=== PATIENT | male | born 1950 | race Caucasian/White ===

== ENCOUNTER 2024-07-07 06:57 | Day surgery (SDC) | payer OTHER ==
[2024-07-07] VITALS (7 sets, daily range): BP systolic 120–148; BP diastolic 73–87
[~2024-07-07 06:57] MED LIST: NS 250 ML IV SCH
[2024-07-07] MEDS ORDERED: IRON FOLATE-F1 EACH PO (13:47)
== END 2024-07-07 17:15 | disposition home or self-care (01) ==
LOC: ATC 06:57 → LAB FUT 07-06 14:20 → EDSTATUS 07-06 14:20 → ATC 07-06 14:20
DX: D64.9 Anemia, unspecified (principal); C90.00 Multiple myeloma not having achieved remission; I10 Essential (primary) hypertension; E78.5 Hyperlipidemia, unspecified; F43.10 Post-traumatic stress disorder, unspecified; Z87.891 Personal history of nicotine dependence; Z79.899 Other long term (current) drug therapy
CPT/HCPCS: 36415; 36430; 86850; 86900; 86901; 86923; J7050; P9016

== ENCOUNTER 2024-08-27 08:52 | Day surgery (SDC) | payer OTHER ==
[~2024-08-27] VITALS: Ht 175.3 cm; Wt 72.4 kg
[~2024-08-27 08:52] MED LIST changes: +FERSU300 PO; +IRON FOLATE-F1 EACH PO; -NS 250 ML IV SCH; +NS 500 ML IV ONE
[2024-08-27] MEDS ORDERED: NS 500 ML IV ONE (09:19)
--- NOTE | 2024-08-27 09:44 | NUR ---
08/27/24 0944 Alyssa Chavez TIME OUT PERFORMED AT BEDSIDE WITH DR RAMOS AT 0941 IMMEDIATELY PRIOR TO INJECTION INTO R HAND OF 9ML OF SOLUTION CONSISTING OF 9ML 1% LIDOCAINE WITH EPI [id number] AND 1ML 8.45 SODIUM BICARBONATE. PATIENT TOLERATED PROCEDURE WELL.
== END 2024-08-27 10:44 | disposition home or self-care (01) ==
LOC: ORSCSDS 08:52
PROVIDERS: Orthopaedic Surgery
PROC: 01N54ZZ Release Median Nerve, Percutaneous Endoscopic Approach (ICD-10-PCS; principal; 2024-08-27 10:30)
DX: G56.01 Carpal tunnel syndrome, right upper limb (principal); Z87.891 Personal history of nicotine dependence
CPT/HCPCS: J7040

== ENCOUNTER 2024-09-12 10:34 | Observation (INO) | payer OTHER ==
[~2024-09-12] VITALS: Ht 175.3 cm; Wt 67.8 kg
[2024-09-12] VITALS (12 sets, daily range): BP systolic 103–121; BP diastolic 67–79
[~2024-09-12 10:34] MED LIST changes: -NS 500 ML IV ONE
[2024-09-12 11:57] LABS: International Normalized Ratio 1.11; Prothrombin Time Results 11.8 Sec (9.7-11.5)
[2024-09-12 12:16] LABS: Magnesium, Blood 2.1 mg/dL (1.6-2.4)
[2024-09-12 12:36] LABS: Albumin, Blood 2.6 g/dL (3.4-5.0); Albumin/Globulin Ratio 0.3 (0.8-1.8); Bilirubin, Total 0.7 mg/dL (0.1-1.0); Calcium, Blood 9.5 mg/dL (8.5-10.1); Creatinine, Blood 1.61 mg/dL (0.60-1.20); Globulin, Blood 8.6 g/dL (2.2-4.0); Potassium, Blood 4.2 mmol/L (3.5-5.5); Total Protein, Blood 11.2 g/dL (6.4-8.2)
[2024-09-12 12:37] LABS: Bun/Creatinine Ratio 16.8 (12.0-20.0)
[2024-09-12 13:36] LABS: Calcium, Ionized (POC) 1.14 mmol/L (1.10-1.46); Chloride (POC) 102 mmol/L (98-108); Creatinine (POC) 1.8 mg/dL (0.8-1.3); Glucose (ISTAT POC) 88 mg/dL (70-99); Hemoglobin (POC) 6.1 g/dL (13.5-17.5); Potassium (POC) 4.2 mmol/L (3.5-5.5); Sodium (POC) 137 mmol/L (135-148); Total CO2 (POC) 23 mmol/L (21-32)
[2024-09-12 13:42] LABS: Mean Corpuscular HGB 32.9 pg (26.0-34.0); Mean Corpuscular HGB Conc 32.3 g/dL (31.5-36.5); Mean Corpuscular Volume 102 fL (80-100); NRBC ABSOLUTE 0.11 K/mm3 (0.00-0.02); RDW Coefficient Variation 19.9 % (11.7-14.2); RDW Standard Deviation 72.2 fL (35.1-46.3); Red Blood Cell Count 1.52 M/mm3 (4.30-5.90); White Blood Cell Count 5.58 K/mm3 (4.00-11.30)
[2024-09-12 13:45] LABS: Mean Platelet Volume 8.8 fL (9.1-12.4); Platelet Count 127 K/mm3 (150-400)
[2024-09-12 13:46] LABS: Hematocrit 15.5 % (37.0-53.0)
[2024-09-12 13:48] LABS: BAND PERCENT MAN 4 % (0-8); BASOPHILS PERCENT MAN 0 % (0-2); EOSINOPHILS PERCENT MAN 0 % (0-6); LYMPHOCYTES ABSOLUTE MAN 1.56 K/mm3 (0.84-5.20); LYMPHOCYTES PERCENT MAN 28 % (21-46); METAMYELOCYTE ABSOLUTE MAN 0.22 K/mm3 (0.00-0.00); METAMYELOCYTE PERCENT MAN 4 % (0-0); MONOCYTES ABSOLUTE MAN 0.11 K/mm3 (0.16-1.47); MONOCYTES PERCENT MAN 2 % (4-13); MYELOCYTE ABSOLUTE MAN 0.16 K/mm3 (0.00-0.00); MYELOCYTE PERCENT MAN 3 % (0-0); NEUTROPHILS ABSOLUTE MAN 3.51 K/mm3 (1.96-9.15); SEG NEUTROPHILS PERCENT MAN 59 % (41-73); TOTAL CELLS COUNTED 100
[2024-09-12] MEDS ORDERED: FLU VACC TS2024-25(6MOS UP)/PF 45 MCG/0.5 ML SYRINGE IM ONE (14:20)
[2024-09-12 15:12] LABS: IMMATURE RETIC FRACTION 35.4 % (2.3-16.0); RETIC HGB EQUIVALENT 31.1 pg (28.20-36.60); RETICULOCYTE ABSOLUTE 0.0619 M/mm3 (0.0200-0.1100); RETICULOCYTE COUNT PERCENT 4.1 % (0.50-2.50)
[2024-09-12 16:07] LABS: Percent Saturation 40.7 % (20.0-50.0)
--- NOTE | 2024-09-12 16:14 | NUR ---
1600- REPORT RECEIVED FROM SUPERCHARGER REPAIR SUPERVISORKINZA ROTHMAN.
[2024-09-12] MEDS ORDERED: Furosemide 10 MG / ML 2ML Vial IV SCH (17:00)
--- NOTE | 2024-09-12 18:38 | NUR ---
1615- PT TO MEDICAL FLOOR IN STABLE CONDITION.
--- NOTE | 2024-09-12 22:39 | NUR ---
ADMIT 2149 RECEIVED PT VIA WC WITH TECH, PT TRANSFERRED TO BED WITH STANDBY ASSIST, WEAK GAIT NOTED, ALERT AND ORIENTED X4, FOLLOWS COMMANDS, ABLE TO MAKE NEEDS KNOWN, 18G IN LEFT AC PATENT AND CLAMPED, 18 G PLACED TO RIGHT FOREARM,
--- NOTE | 2024-09-12 22:45 | NUR ---
SHIFT SUMMARY PT AWAITING TRANSFER TO PCU 14. HE WILL NEED LAB NOTIFIED ONCE HIS BLOOD TRANSFUSION IS COMPLETE IN ORDER TO DRAW LABS 2 HOURS AFTER TRANSFUSING. PT NEEDING PULSE OX ORDERED AND PLACED PER DAY SHIFT. DR. ALEXANDER PUT IN AN ORDER TO HAVE LASIX ADMINISTERED WITH PT S SECOND UNIT OF RBC'S. PT SITTING UP IN BED AWAITING TRANSFER. PT TRANSFERRED TO PCU 14 BY WHEELCHAIR. ALL PT BELONGINGS WITH PT.
[2024-09-13] VITALS (39 sets, daily range): BP systolic 108–166; BP diastolic 69–85
--- NOTE | 2024-09-13 06:22 | NUR ---
SHIFT SUMMARY VSS, AFEBRILE, ALERT AND ORIENTED X4, FOLLOWS COMMANDS, ABLE TO MAKE NEEDS KNOWN, X2 UNITS PRBC COMPLETED WITH 20 MG LASIX GIVEN WITH 2ND UNIT, 3RD UNIT PRBC INFUSING AT THIS TIME, NO REACTION NOTED, VOIDS WITHOUT DIFFICULTY, 24 HOUR URINE COLLECTION CONTINUED UNTIL 09/14 AT 0100, PT DENIES C/O PAIN OR SOB, CALL LIGHT IN REACH
--- NOTE | 2024-09-13 07:21 | NUR ---
ASSUMPTION NOTE: THIS RN TO ASSUME CARE. PATIENT IS SITING UP IN BED WATCHING TV. BLOOD PRODUCTS JUST COMPLETED AND CHARTED OUT BY PREVIOUS BUTTON SPINDLER RN. VITAL SIGNS TAKEN BY THIS RN AND PATIENT STABLE. DENIES CHEST PAIN/PRESSURE OR FEELING SOB. NO NAUSEA/VOMITING. LUNG SOUNDS CLEAR. PATIENT BROUGHT IN TOOTH BRUSH AND DENTURE CARE TABS BY PCT. HAS BED IN LOWEST POSITION AND CALL LIGHT WITHIN [facility].
--- NOTE | 2024-09-13 09:41 | NUR ---
MD AT BEDSIDE: MD CLEMENTE AND RESIDENTS WERE AT BEDSIDE AND TALKED WITH PATIENT AND THE . BLOOD WAS DRAWN FOR HEMOGLOBIN LAB VALUES, PENDING THOSE PATIENT WILL BE LOOKING TO DISCHARGE TODAY. GIVEN COFFE, PATIENT HAS CALL LIGHT WITHIN REACH AND BED IN LOWEST POSITION.
[2024-09-13 10:25] LABS: BASOPHILS ABSOLUTE AUTO 0.04 K/mm3 (0.00-0.23); BASOPHILS PERCENT AUTO 1 % (0-2); EOSINOPHILS ABSOLUTE AUTO 0.02 K/mm3 (0.00-0.68); EOSINOPHILS PERCENT AUTO 0 % (0-6); IMMATURE GRAN ABSOLUTE AUTO 0.53 K/mm3 (0.00-0.10); IMMATURE GRAN PERCENT AUTO 11 % (0-1); LYMPHOCYTES ABSOLUTE AUTO 1.28 K/mm3 (0.84-5.20); LYMPHOCYTES PERCENT AUTO 25 % (21-46); MONOCYTES PERCENT AUTO 6 % (4-13); Mean Platelet Volume 8.8 fL (9.1-12.4); NEUTROPHILS ABSOLUTE AUTO 2.88 K/mm3 (1.96-9.15); NEUTROPHILS PERCENT AUTO 57 % (41-73); NRBC ABSOLUTE 0.09 K/mm3 (0.00-0.02); NRBC Auto 1.8 /100 WBC (0.0-0.2); Platelet Count 115 K/mm3 (150-400); RDW Coefficient Variation 19.5 % (11.7-14.2); RDW Standard Deviation 66.9 fL (35.1-46.3); White Blood Cell Count 5.05 K/mm3 (4.00-11.30)
[2024-09-13 11:22] LABS: Red Blood Cell Count 2.17 M/mm3 (4.30-5.90)
[2024-09-13 11:23] LABS: Hemoglobin 7.1 g/dL (13.5-17.5)
[2024-09-13 11:24] LABS: Hematocrit 21.4 % (37.0-53.0)
[2024-09-13 11:25] LABS: Mean Corpuscular HGB 32.7 pg (26.0-34.0); Mean Corpuscular HGB Conc 33.2 g/dL (31.5-36.5); Mean Corpuscular Volume 99 fL (80-100)
--- NOTE | 2024-09-13 13:27 | NUR ---
DISCHARGE NOTE: THIS RN RETURNED FROM LUNCH AND PATIENT HAD BEEN DISCHARGED FROM THE FACILITY. THIS RN WENT OVER PATIENT DISCHARGE INSTURCTIONS AND PATIENT AWARE TO CALL TO MAKE A FOLLOW UP APPOINTMENT WITH PRIMARY CARE PROVIDER & TO FOLLOW UP WITH OUTPATIENT AT THE ONCOLOGY OFFICE.
[2024-09-13 17:07] LABS: Bun/Creatinine Ratio 40.1 (12.0-20.0); Calcium, Blood 8.2 mg/dL (8.5-10.1); Creatinine, Blood 0.67 mg/dL (0.60-1.20)
== END 2024-09-13 13:15 | disposition home or self-care (01) ==
LOC: ER 10:34 → PCU 10:35 → ER 14:18 → MEDS 14:18 → PCU 21:48
PROVIDERS: Student in an Organized Health Care Education/Training Program; ADMIT Internal Medicine
DX: D50.9 Iron deficiency anemia, unspecified (principal); R79.89 Other specified abnormal findings of blood chemistry; I12.9 Hypertensive chronic kidney disease with stage 1 through stage 4 chronic kidney disease, or unspecified chronic kidney disease; N18.32 Chronic kidney disease, stage 3b; G56.00 Carpal tunnel syndrome, unspecified upper limb; E78.5 Hyperlipidemia, unspecified; M19.90 Unspecified osteoarthritis, unspecified site; Z87.891 Personal history of nicotine dependence
CPT/HCPCS: 36415; 36430; 71045; 80047; 80048; 80053; 82607; 82728; 82746; 83540; 83550; 83735; 83880; 84484; 85014; 85025; 85045; 85610; 85730; 86850; 86870; 86880; 86900; 86901; 86922; 88184; 88185; 93005; 93010; 96374; 99285-25; G0378; J1940; P9016

== ENCOUNTER 2024-09-28 05:15 | Day surgery (SDC) | payer OTHER ==
[2024-09-28] MEDS ORDERED: NS 250 ML IV SCH (06:45)
[2024-09-28 13:36] VITALS: BP 109/74
[2024-09-28 13:53] VITALS: BP 99/63
[2024-09-28 14:56] VITALS: BP 104/67
[2024-09-28 15:30] VITALS: BP 120/75
[2024-09-28 15:52] VITALS: BP 110/65
[2024-09-28 16:55] VITALS: BP 111/65
== END 2024-09-28 17:17 | disposition home or self-care (01) ==
LOC: ATC 05:15
DX: C90.00 Multiple myeloma not having achieved remission (principal); D64.9 Anemia, unspecified; F43.10 Post-traumatic stress disorder, unspecified; G56.00 Carpal tunnel syndrome, unspecified upper limb; E78.5 Hyperlipidemia, unspecified; Z87.891 Personal history of nicotine dependence
CPT/HCPCS: 36415; 36430; 86850; 86870; 86900; 86901; 86902; 86922; J7050; P9016

== ENCOUNTER 2024-10-12 03:49 | Day surgery (SDC) | payer OTHER ==
[2024-10-12] MEDS ORDERED: NS 250 ML IV SCH (06:45)
[2024-10-12 07:38] VITALS: BP 108/73
[2024-10-12 08:11] VITALS: BP 87/67
[2024-10-12 09:13] VITALS: BP 98/67
[2024-10-12 09:59] VITALS: BP 100/66
[2024-10-12 10:18] VITALS: BP 92/66
[2024-10-12 11:18] VITALS: BP 108/70
== END 2024-10-12 11:51 | disposition home or self-care (01) ==
LOC: ATC 03:49
DX: C90.00 Multiple myeloma not having achieved remission (principal); D64.9 Anemia, unspecified; I10 Essential (primary) hypertension; Z87.891 Personal history of nicotine dependence; Z79.899 Other long term (current) drug therapy
CPT/HCPCS: 36415; 36430; 86850; 86870; 86900; 86901; 86902; 86922; J7050; P9016

== ENCOUNTER 2024-11-12 22:30 | Observation (INO) | payer OTHER ==
[~2024-11-12] VITALS: Ht 175.3 cm; Wt 65.5 kg
[2024-11-12] MEDS ORDERED: Oxymetazoline 0.05% Nasal Relief Spray 15mL BTL ONE (22:40)
[2024-11-12 23:53] LABS: Alanine Aminotransfer (ALT/SGP 15 U/L (12-78); Albumin, Blood 2.7 g/dL (3.4-5.0); Albumin/Globulin Ratio 0.3 (0.8-1.8); Alk Phos 121 U/L (50-136); Anion Gap 12 mmol/L (3-11); Aspartate Aminotrans (AST/SGOT 15 U/L (12-37); Bilirubin, Total 0.5 mg/dL (0.1-1.0); CO2, Blood 24 mmol/L (21-32); Calcium, Blood 8.7 mg/dL (8.5-10.1); Chloride, Blood 103 mmol/L (98-108); Creatinine, Blood 1.78 mg/dL (0.60-1.20); Globulin, Blood 8.2 g/dL (2.2-4.0); Glomerular Filtration Rate 39 (60-); Glucose, Blood 117 mg/dL (70-99); Potassium, Blood 3.7 mmol/L (3.5-5.5); Sodium, Blood 135 mmol/L (136-145); Total Protein, Blood 10.9 g/dL (6.4-8.2)
[2024-11-12 23:55] LABS: Bun/Creatinine Ratio Unable to Calculate (12.0-20.0)
[2024-11-12 23:58] LABS: Mean Corpuscular HGB 32.7 pg (26.0-34.0); Mean Corpuscular HGB Conc 33.3 g/dL (31.5-36.5); Mean Corpuscular Volume 98 fL (80-100); NRBC ABSOLUTE 0.03 K/mm3 (0.00-0.02); NRBC Auto 0.6 /100 WBC (0.0-0.2); RDW Coefficient Variation 20.7 % (11.7-14.2); RDW Standard Deviation 72.6 fL (35.1-46.3); Red Blood Cell Count 1.53 M/mm3 (4.30-5.90); White Blood Cell Count 4.82 K/mm3 (4.00-11.30)
[2024-11-13] VITALS (15 sets, daily range): BP systolic 102–123; BP diastolic 68–93
[2024-11-13] LABS: Mean Platelet Volume 11.5 fL (9.1-12.4); Platelet Count 55 K/mm3 (150-400)
[2024-11-13 00:20] LABS: BAND PERCENT MAN 1 % (0-8); BASOPHILS ABSOLUTE MAN 0.04 K/mm3 (0.00-0.23); BASOPHILS PERCENT MAN 1 % (0-2); EOSINOPHILS PERCENT MAN 0 % (0-6); LYMPHOCYTES ABSOLUTE MAN 1.78 K/mm3 (0.84-5.20); LYMPHOCYTES PERCENT MAN 37 % (21-46); METAMYELOCYTE ABSOLUTE MAN 0.04 K/mm3 (0.00-0.00); METAMYELOCYTE PERCENT MAN 1 % (0-0); MONOCYTES ABSOLUTE MAN 0.33 K/mm3 (0.16-1.47); MONOCYTES PERCENT MAN 7 % (4-13); MYELOCYTE ABSOLUTE MAN 0.04 K/mm3 (0.00-0.00); MYELOCYTE PERCENT MAN 1 % (0-0); NEUTROPHILS ABSOLUTE MAN 2.55 K/mm3 (1.96-9.15); SEG NEUTROPHILS PERCENT MAN 52 % (41-73); TOTAL CELLS COUNTED 100
[2024-11-13] MEDS ORDERED: Ondansetron HCl 2 MG / ML 2ML Vial IV PRN (03:50)
[2024-11-13 04:52] LABS: IMMATURE GRAN ABSOLUTE AUTO 0.16 K/mm3 (0.00-0.10); IMMATURE GRAN PERCENT AUTO 3 % (0-1); Mean Corpuscular HGB 34.9 pg (26.0-34.0); Mean Corpuscular HGB Conc 35.1 g/dL (31.5-36.5); Mean Corpuscular Volume 99 fL (80-100); Mean Platelet Volume 9.7 fL (9.1-12.4); NRBC ABSOLUTE 0.02 K/mm3 (0.00-0.02); NRBC Auto 0.4 /100 WBC (0.0-0.2); Platelet Count 96 K/mm3 (150-400); RDW Coefficient Variation 20.3 % (11.7-14.2); RDW Standard Deviation 72.2 fL (35.1-46.3); Red Blood Cell Count 1.52 M/mm3 (4.30-5.90); White Blood Cell Count 4.81 K/mm3 (4.00-11.30)
[2024-11-13 04:55] LABS: Hematocrit 15.1 % (37.0-53.0); Hemoglobin 5.3 g/dL (13.5-17.5)
[2024-11-13 04:57] LABS: BAND PERCENT MAN 1 % (0-8); BASOPHILS PERCENT MAN 0 % (0-2); EOSINOPHILS ABSOLUTE MAN 0.04 K/mm3 (0.00-0.68); EOSINOPHILS PERCENT MAN 1 % (0-6); LYMPHOCYTES ABSOLUTE MAN 1.53 K/mm3 (0.84-5.20); LYMPHOCYTES PERCENT MAN 32 % (21-46); METAMYELOCYTE ABSOLUTE MAN 0.04 K/mm3 (0.00-0.00); METAMYELOCYTE PERCENT MAN 1 % (0-0); MONOCYTES ABSOLUTE MAN 0.09 K/mm3 (0.16-1.47); MONOCYTES PERCENT MAN 2 % (4-13); NEUTROPHILS ABSOLUTE MAN 3.07 K/mm3 (1.96-9.15); SEG NEUTROPHILS PERCENT MAN 63 % (41-73); TOTAL CELLS COUNTED 100
[2024-11-13] MEDS ORDERED: NS 500 ML IV SCH (05:05)
[2024-11-13] MEDS ORDERED: Ferrous Sulfate 325 MG Tab PO SCH (09:00)
[2024-11-13] MEDS ORDERED: NS 1,000 ML IV SCH (11:50)
[2024-11-13] MEDS ORDERED: Sod Ferric Gluc Complx/Sucrose 125 MG in NS 100 ML IV SCH (11:52)
[2024-11-13 13:49] LABS: IMMATURE RETIC FRACTION 20.7 % (2.3-16.0); RETIC HGB EQUIVALENT 36.2 pg (28.20-36.60); RETICULOCYTE ABSOLUTE 0.0157 M/mm3 (0.0200-0.1100); RETICULOCYTE COUNT PERCENT 0.82 % (0.50-2.50)
[2024-11-13 14:54] LABS: Hematocrit 17.5 % (37.0-53.0); Hemoglobin 5.7 g/dL (13.5-17.5)
[2024-11-13] MEDS ORDERED: BRUKINSA80 MG PO (15:40)
[2024-11-13] MEDS ORDERED: NS 500 ML IV ONE (16:00)
[2024-11-13 17:03] LABS: Source, Urine Clean Catch
--- NOTE | 2024-11-13 17:13 | NUR ---
PT HAS BEEN AOX4 AND COOPERTATIVE OF ALL CARE. PT HAS BEEN INDEPENDENT TO RESTROOM. PT STARTED SHIFT WITH 5.3 HGB. AFTER COMPLETING TWO UNITS PT'S HGB 5.7. PT WANTED TO LEAVE AND DR DUGAN CAME AND SPOKE WITH PT AND PT DECIDED TO STAY. LAB CALLED AND BLOOD SAMPLES HAVE BEEN CLOTTING. THE DR TEAM ORDERED A 500NS BOLUS. LABS WERE COLLECTED AFTER BOLUS IN HOPES THEY WILL BEABLE TO BE PROCESSED. PT IS RESTING WITH CALL LIGHT IN REACH WILL CONTINUE TO MONITOR.
[2024-11-13 17:18] LABS: Appearance, Urine Clear (Clear); Bilirubin, Urine Neg (Neg); Blood, Urine 2+ (Neg); Color, Urine Yellow (P-Yellow); Glucose Qualitative, Urine Neg (Neg); Ketones, Urine Neg (Neg); Leukocyte Esterase, Urine Neg (Neg); Nitrite, Urine Neg (Neg); Protein, Urine 3+ (Neg); Specific Gravity, Urine 1.015 (1.003-1.022); Urobilinogen, Urine 1+ (Normal)
[2024-11-13 17:50] LABS: White Blood Cells, Urine 0-2 /hpf (0-5)
[2024-11-13 17:51] LABS: Amorphous Mod (0-Heavy); Bacteria Rare /hpf; Mucus Light (0-Heavy); Squamous Epithelial Cells Rare /hpf (Few)
[2024-11-13 19:22] LABS: Hemoglobin 7.6 g/dL (13.5-17.5)
[2024-11-13] MEDS ORDERED: ZANUBRUTINIB 80 MG PO SCH (21:00)
[2024-11-13 21:02] LABS: Hemoglobin 6.3 g/dL (13.5-17.5)
[2024-11-13 21:09] LABS: BASOPHILS ABSOLUTE AUTO 0.02 K/mm3 (0.00-0.23); BASOPHILS PERCENT AUTO 0 % (0-2); EOSINOPHILS ABSOLUTE AUTO 0.03 K/mm3 (0.00-0.68); EOSINOPHILS PERCENT AUTO 1 % (0-6); IMMATURE GRAN ABSOLUTE AUTO 0.22 K/mm3 (0.00-0.10); IMMATURE GRAN PERCENT AUTO 5 % (0-1); LYMPHOCYTES ABSOLUTE AUTO 1.85 K/mm3 (0.84-5.20); LYMPHOCYTES PERCENT AUTO 39 % (21-46); MONOCYTES ABSOLUTE AUTO 0.28 K/mm3 (0.16-1.47); MONOCYTES PERCENT AUTO 6 % (4-13); Mean Platelet Volume 9.6 fL (9.1-12.4); NEUTROPHILS ABSOLUTE AUTO 2.33 K/mm3 (1.96-9.15); NEUTROPHILS PERCENT AUTO 49 % (41-73); Platelet Count 103 K/mm3 (150-400); RDW Coefficient Variation 20.2 % (11.7-14.2); RDW Standard Deviation 68.8 fL (35.1-46.3); White Blood Cell Count 4.73 K/mm3 (4.00-11.30)
[2024-11-13 21:29] LABS: Hemoglobin 6.8 g/dL (13.5-17.5); Mean Corpuscular Volume 96 fL (80-100); Red Blood Cell Count 2.16 M/mm3 (4.30-5.90)
[2024-11-13 21:30] LABS: Hematocrit 20.8 % (37.0-53.0); Mean Corpuscular HGB 31.5 pg (26.0-34.0); Mean Corpuscular HGB Conc 32.7 g/dL (31.5-36.5)
--- NOTE | 2024-11-13 22:10 | NUR ---
CALLED HOSPITALIST INFORMED HIM OF [facility] RESULTS. RECEIVED ORDER TO TRANSFUSE 1 UNIT OF PRBC'S, AND REDRAW H&H LAB 30 MINUTES AFTER INFUSION IS COMPLETE
[2024-11-14] VITALS (9 sets, daily range): BP systolic 104–117; BP diastolic 67–82
[2024-11-14 02:49] LABS: Hemoglobin 6.7 g/dL (13.5-17.5); Mean Corpuscular HGB 31.2 pg (26.0-34.0); Mean Corpuscular Volume 93 fL (80-100); NRBC ABSOLUTE 0.05 K/mm3 (0.00-0.02); NRBC Auto 1.2 /100 WBC (0.0-0.2); RDW Coefficient Variation 19.9 % (11.7-14.2); RDW Standard Deviation 63.8 fL (35.1-46.3); Red Blood Cell Count 2.15 M/mm3 (4.30-5.90); White Blood Cell Count 4.34 K/mm3 (4.00-11.30)
[2024-11-14 02:51] LABS: Mean Platelet Volume 9.2 fL (9.1-12.4); Platelet Count 110 K/mm3 (150-400)
[2024-11-14 02:52] LABS: Mean Corpuscular HGB Conc 33.5 g/dL (31.5-36.5)
[2024-11-14 03:25] LABS: BAND PERCENT MAN 2 % (0-8); BASOPHILS PERCENT MAN 0 % (0-2); EOSINOPHILS PERCENT MAN 0 % (0-6); LYMPHOCYTES ABSOLUTE MAN 1.69 K/mm3 (0.84-5.20); LYMPHOCYTES PERCENT MAN 39 % (21-46); METAMYELOCYTE ABSOLUTE MAN 0.08 K/mm3 (0.00-0.00); METAMYELOCYTE PERCENT MAN 2 % (0-0); MONOCYTES ABSOLUTE MAN 0.26 K/mm3 (0.16-1.47); MONOCYTES PERCENT MAN 6 % (4-13); SEG NEUTROPHILS PERCENT MAN 51 % (41-73); TOTAL CELLS COUNTED 100
--- NOTE | 2024-11-14 03:44 | NUR ---
SHIFT SUMMARY ADMITTED FOR SEVERE ANEMIA. FULL CODE. [facility] PATIENT. HX OF MULTIPLE MYELOMA AND IRON DEFICIENT ANEMIA. 1 UNIT OF PRBC'S GIVEN THIS SHIFT, 2 UNITS ON PREVIOUS SHIFT. NS INFUSING @ 125 ML/HR. REGULAR DIET. ON RA. INDEPENDENT IN ROOM. HE TAKES IRON SUPPLEMENTS @ HOME AND HE SEES DR. FINCH OUTPT. NO S/SX OR DISCOMFORT REPORTED.
[2024-11-14 08:58] LABS: Hematocrit 19.5 % (37.0-53.0); Hemoglobin 6.4 g/dL (13.5-17.5)
[2024-11-14 09:12] LABS: Albumin, Blood 2.3 g/dL (3.4-5.0); Albumin/Globulin Ratio 0.3 (0.8-1.8); Bilirubin, Total 0.9 mg/dL (0.1-1.0); Bun/Creatinine Ratio 15.5 (12.0-20.0); Calcium, Blood 8.9 mg/dL (8.5-10.1); Creatinine, Blood 1.68 mg/dL (0.60-1.20); Globulin, Blood 7.5 g/dL (2.2-4.0); Total Protein, Blood 9.8 g/dL (6.4-8.2)
[2024-11-14 16:41] LABS: Hemoglobin 7.6 g/dL (13.5-17.5)
[2024-11-14 16:42] LABS: Hematocrit 22.6 % (37.0-53.0)
--- NOTE | 2024-11-14 18:15 | NUR ---
DC-1705 PT DC IN STABLE CONDITION WITH ALL BELONGINGS. PT LEFT WITH FOR RIDE. NO NEW RX. PT ENCOURAGED TO FOLLOW UP WITH ALL APPTS.
== END 2024-11-14 17:45 | disposition home or self-care (01) ==
LOC: ER 22:30 → MEDS 22:31 → ERHOLD 22:31 → MEDS 11-13 03:51
PROVIDERS: Family Medicine; Student in an Organized Health Care Education/Training Program; ADMIT Internal Medicine
DX: C90.00 Multiple myeloma not having achieved remission (principal); D50.9 Iron deficiency anemia, unspecified; D69.6 Thrombocytopenia, unspecified; R79.89 Other specified abnormal findings of blood chemistry; I12.9 Hypertensive chronic kidney disease with stage 1 through stage 4 chronic kidney disease, or unspecified chronic kidney disease; N18.2 Chronic kidney disease, stage 2 (mild); E78.5 Hyperlipidemia, unspecified
CPT/HCPCS: 36415; 36430; 80053; 81001; 83935; 84300; 85014; 85018; 85025; 85045; 86850; 86870; 86900; 86901; 86902; 86922; 96365; 96366; 99284; A9270; G0378; J2916; J7030; J7040; P9016

== ENCOUNTER 2024-11-23 19:36 | Emergency (ER) | payer OTHER ==
[~2024-11-23] VITALS: Ht 162.6 cm; Wt 68.0 kg
[~2024-11-23 19:36] MED LIST changes: +BRUKINSA80 MG PO
[2024-11-23 21:01] LABS: International Normalized Ratio 1.05; Prothrombin Time Results 11.2 Sec (9.7-11.5)
[2024-11-23 21:26] LABS: Albumin, Blood 2.8 g/dL (3.4-5.0); Albumin/Globulin Ratio 0.3 (0.8-1.8); Bilirubin, Total 0.9 mg/dL (0.1-1.0); Calcium, Blood 11.1 mg/dL (8.5-10.1); Creatinine, Blood 1.79 mg/dL (0.60-1.20); Globulin, Blood 8.4 g/dL (2.2-4.0); Total Protein, Blood 11.2 g/dL (6.4-8.2)
[2024-11-23 21:51] LABS: BASOPHILS ABSOLUTE AUTO 0.01 K/mm3 (0.00-0.23); BASOPHILS PERCENT AUTO 0 % (0-2); EOSINOPHILS ABSOLUTE AUTO 0.03 K/mm3 (0.00-0.68); EOSINOPHILS PERCENT AUTO 1 % (0-6); Hematocrit 24.5 % (37.0-53.0); Hemoglobin 7.8 g/dL (13.5-17.5); IMMATURE GRAN ABSOLUTE AUTO 0.04 K/mm3 (0.00-0.10); IMMATURE GRAN PERCENT AUTO 1 % (0-1); LYMPHOCYTES PERCENT AUTO 33 % (21-46); MONOCYTES ABSOLUTE AUTO 0.31 K/mm3 (0.16-1.47); MONOCYTES PERCENT AUTO 6 % (4-13); Mean Corpuscular HGB 31.2 pg (26.0-34.0); Mean Corpuscular HGB Conc 31.8 g/dL (31.5-36.5); Mean Corpuscular Volume 98 fL (80-100); Mean Platelet Volume 9.5 fL (9.1-12.4); NEUTROPHILS ABSOLUTE AUTO 3.07 K/mm3 (1.96-9.15); NEUTROPHILS PERCENT AUTO 60 % (41-73); NRBC ABSOLUTE 0.03 K/mm3 (0.00-0.02); NRBC Auto 0.6 /100 WBC (0.0-0.2); RDW Coefficient Variation 19.4 % (11.7-14.2)
[2024-11-23 22:14] LABS: Platelet Count 144 K/mm3 (150-400); White Blood Cell Count 5.53 K/mm3 (4.00-11.30)
[2024-11-23] MEDS ORDERED: Tranexamic Acid 1000 MG/10 ML 10ML Vial (SDV) TOP ONE (22:50)
[2024-11-23] MEDS ORDERED: Oxymetazoline 0.05% Nasal Relief Spray 15mL BTL SCH (22:50)
[2024-11-23 23:19] LABS: Hematocrit 21.9 % (37.0-53.0); Hemoglobin 7.3 g/dL (13.5-17.5)
== END 2024-11-24 01:22 | disposition home or self-care (01) ==
LOC: ER 19:36
PROVIDERS: Emergency Medicine; Student in an Organized Health Care Education/Training Program
DX: R04.0 Epistaxis (principal); D64.9 Anemia, unspecified; I12.9 Hypertensive chronic kidney disease with stage 1 through stage 4 chronic kidney disease, or unspecified chronic kidney disease; M19.90 Unspecified osteoarthritis, unspecified site; E78.5 Hyperlipidemia, unspecified; N18.32 Chronic kidney disease, stage 3b; R79.89 Other specified abnormal findings of blood chemistry; Z59.89 Other problems related to housing and economic circumstances; Z79.899 Other long term (current) drug therapy
CPT/HCPCS: 30903; 80053; 84484; 85014; 85018; 85025; 85610; 85730; 86850; 86900; 86901; 93005; 93010; 99284-25; A9270

== ENCOUNTER 2024-11-26 11:20 | Emergency (ER) | payer OTHER ==
[~2024-11-26] VITALS: Ht 175.3 cm; Wt 63.0 kg
== END 2024-11-26 14:23 | disposition home or self-care (01) ==
LOC: ER 11:20
DX: R04.0 Epistaxis (principal)
CPT/HCPCS: 99282

== ENCOUNTER → 2025-02-18 | Outpatient (CLI) | payer OTHER ==
[2025-02-18 10:50] LABS: BASOPHILS ABSOLUTE AUTO 0.01 K/mm3 (0.00-0.23); BASOPHILS PERCENT AUTO 0 % (0-2); EOSINOPHILS ABSOLUTE AUTO 0.01 K/mm3 (0.00-0.68); EOSINOPHILS PERCENT AUTO 0 % (0-6); Hematocrit 29.2 % (37.0-53.0); Hemoglobin 10.9 g/dL (13.5-17.5); IMMATURE GRAN ABSOLUTE AUTO 0.14 K/mm3 (0.00-0.10); IMMATURE GRAN PERCENT AUTO 2 % (0-1); LYMPHOCYTES ABSOLUTE AUTO 0.91 K/mm3 (0.84-5.20); LYMPHOCYTES PERCENT AUTO 15 % (21-46); MONOCYTES ABSOLUTE AUTO 0.31 K/mm3 (0.16-1.47); MONOCYTES PERCENT AUTO 5 % (4-13); Mean Corpuscular HGB Conc 37.3 g/dL (31.5-36.5); Mean Corpuscular Volume 102 fL (80-100); NEUTROPHILS ABSOLUTE AUTO 4.82 K/mm3 (1.96-9.15); NEUTROPHILS PERCENT AUTO 78 % (41-73); NRBC ABSOLUTE 0.00 K/mm3 (0.00-0.02); NRBC Auto 0.0 /100 WBC (0.0-0.2); Platelet Count 142 K/mm3 (150-400); RDW Coefficient Variation 13.0 % (11.7-14.2); RDW Standard Deviation 49.0 fL (35.1-46.3)
[2025-02-18 11:22] LABS: Alanine Aminotransfer (ALT/SGP 19.0 U/L (12-78); Albumin, Blood 2.7 g/dL (3.4-5.0); Albumin/Globulin Ratio 0.5 (0.8-1.8); Anion Gap 11.0 mmol/L (3-11); Aspartate Aminotrans (AST/SGOT 24.0 U/L (12-37); Bilirubin, Total 1.2 mg/dL (0.1-1.0); Blood Urea Nitrogen 48.0 mg/dL (8-24); CO2, Blood 27.0 mmol/L (21-32); Calcium, Blood 9.4 mg/dL (8.5-10.1); Chloride, Blood 100.0 mmol/L (98-108); Creatinine, Blood 1.07 mg/dL (0.60-1.20); Globulin, Blood 5.7 g/dL (2.2-4.0); Glucose, Blood 100.0 mg/dL (70-99); Potassium, Blood 3.5 mmol/L (3.5-5.5); Sodium, Blood 134.0 mmol/L (136-145); Total Protein, Blood 8.4 g/dL (6.4-8.2)
== END ==
LOC: LAB SHORT 10:35 → LAB 10:35
PROVIDERS: Internal Medicine Hematology & Oncology
DX: C88.00 Waldenstrom macroglobulinemia not having achieved remission (principal)
CPT/HCPCS: 80053; 85025

== ENCOUNTER 2025-03-04 18:45 | Emergency (ER) | payer OTHER ==
[~2025-03-04] VITALS: Ht 175.3 cm; Wt 62.6 kg
[2025-03-04] MEDS ORDERED: HYDROmorphone HCl/Pf 1MG SYR IV ONE (19:55)
[2025-03-04] MEDS ORDERED: Ondansetron HCl 2 MG / ML 2ML Vial IV ONE (19:55)
[2025-03-04 20:43] LABS: BASOPHILS ABSOLUTE AUTO 0.02 K/mm3 (0.00-0.23); BASOPHILS PERCENT AUTO 0 % (0-2); EOSINOPHILS ABSOLUTE AUTO 0.00 K/mm3 (0.00-0.68); EOSINOPHILS PERCENT AUTO 0 % (0-6); Hematocrit 25.4 % (37.0-53.0); Hemoglobin 9.4 g/dL (13.5-17.5); IMMATURE GRAN ABSOLUTE AUTO 0.07 K/mm3 (0.00-0.10); IMMATURE GRAN PERCENT AUTO 2 % (0-1); LYMPHOCYTES ABSOLUTE AUTO 0.93 K/mm3 (0.84-5.20); LYMPHOCYTES PERCENT AUTO 20 % (21-46); MONOCYTES ABSOLUTE AUTO 0.49 K/mm3 (0.16-1.47); MONOCYTES PERCENT AUTO 11 % (4-13); Mean Corpuscular HGB Conc 37.0 g/dL (31.5-36.5); Mean Corpuscular Volume 102 fL (80-100); NEUTROPHILS ABSOLUTE AUTO 3.17 K/mm3 (1.96-9.15); NEUTROPHILS PERCENT AUTO 68 % (41-73); NRBC ABSOLUTE 0.00 K/mm3 (0.00-0.02); NRBC Auto 0.0 /100 WBC (0.0-0.2); Platelet Count 122 K/mm3 (150-400); RDW Coefficient Variation 13.4 % (11.7-14.2); RDW Standard Deviation 49.4 fL (35.1-46.3)
[2025-03-04 21:05] LABS: Alanine Aminotransfer (ALT/SGP 18.0 U/L (12-78); Albumin, Blood 2.3 g/dL (3.4-5.0); Albumin/Globulin Ratio 0.5 (0.8-1.8); Anion Gap 8.0 mmol/L (3-11); Aspartate Aminotrans (AST/SGOT 23.0 U/L (12-37); Bilirubin, Total 0.7 mg/dL (0.1-1.0); Blood Urea Nitrogen 28.0 mg/dL (8-24); CO2, Blood 25.0 mmol/L (21-32); Calcium, Blood 7.9 mg/dL (8.5-10.1); Chloride, Blood 102.0 mmol/L (98-108); Creatinine, Blood 0.88 mg/dL (0.60-1.20); Globulin, Blood 4.9 g/dL (2.2-4.0); Glucose, Blood 108.0 mg/dL (70-99); Potassium, Blood 3.4 mmol/L (3.5-5.5); Sodium, Blood 132.0 mmol/L (136-145); Total Protein, Blood 7.2 g/dL (6.4-8.2)
[2025-03-04] MEDS ORDERED: RX Prepack 6 Tabs Oxycodone 5mg UD ONE (22:35)
[2025-03-04] MEDS ORDERED: OXYC5 PO (22:36)
== END 2025-03-04 23:02 | disposition home or self-care (01) ==
LOC: ER 18:45
PROVIDERS: Emergency Medicine
DX: M16.11 Unilateral primary osteoarthritis, right hip (principal); D64.9 Anemia, unspecified
CPT/HCPCS: 72192; 80053; 85025; A9270; J1171; J2405